=== PATIENT | male | born 1970 | race Hispanic/Latino ===

== ENCOUNTER 2024-01-16 21:06 | Emergency (ER) | payer SELFPAY ==
[2024-01-16 21:07] VITALS: BP 143/60; BP 143/90; PULSE 78; RESP 16; TEMP 36.2; TEMP 36.5; O2SAT 97; BMI 34.1
--- NOTE | 2024-01-16 21:34 | EX.ED.DYSGE1 ---
HPI History of Present Illness Chief Complaint: Cellulitis Informant: patient Limited: language barrier ([employer] service was used.) Onset/Context/Timing Onset: Yesterday Context: Sudden Onset Timing: Continuous Quality: Sharp, aching Location: Left lower leg Worsened by: Walking Relieved by: Tylenol, ibuprofen Narrative Narrative: Patient presents with redness and swelling to his left lower leg that has been getting worse since yesterday. Patient states it began rather suddenly. Patient states it is constant. Patient describes the pain as sharp and aching. Patient states the pain is worse with walking. Patient states it is better with Tylenol and ibuprofen. Patient admits to some fatigue. Patient denies any fevers or chills. Patient denies any trauma or injury. PFSH PFS Medical History no medical history no medical history Home Medications ?Medication ?Instructions ?Recorded ?Last Taken ?Type NK 01/16/24 Unknown History cephalexin 500 mg capsule 500 mg PO Q6 #40 CAPSULES 01/16/24 Unknown Rx Allergy/AdvReac Type Severity Reaction Status Date / Time No Known Allergies Allergy Verified 01/16/24 22:31 Surgical History (Updated 01/16/24 @ 23:[address] Jeff Middleton DO) Hx of foot surgery Social History Smoking Status: Never smoker ROS ROS ED Constitutional Constitutional ED: Denies chills or fever(s) Eyes Eyes: Denies blurry vision or change in vision ENT ENT ED: Denies rhinorrhea or sore throat Cardiovascular Cardiovascular: Denies chest pain or palpitations Respiratory/Chest Respiratory/Chest: Denies cough or dyspnea Gastrointestinal Gastrointestinal: Denies nausea or vomiting Genitourinary Genitourinary ED: Denies dysuria or hematuria Musculoskeletal Musculoskeletal: Denies back pain or neck pain Integumentary Denies abscess or rash Neurologic Neurologic: Denies headache(s) or weakness Allergic/Immunologic Allergic/Immunologic ED: Denies mouth swelling or urticaria EXAM Physical Exam Const Vital Signs: 01/16/24 21:07 01/16/24 21:07 Temperature 97.2 F L 97.7 F L Temperature Source Temporal Temporal Pulse Rate 78 78 Respiratory Rate 16 16 Blood Pressure 143/90 H 143/60 H Blood Pressure Mean 107 87 Pulse Ox 97 97 Oxygen Delivery Method Room Air Room Air Positive well nourished and well developed General Appearance ED: well developed and NAD HEENT Reports moist mucous membranes Neck supple and no JVD Extremity Extremity Narrative: There is erythema, warmth, and tenderness over the anterior aspect of the left lower leg. There is no evidence of any abscess. There is no fluctuance. There is full range of motion of the left knee and left ankle. Pedal pulses are equal bilateral. Sensation was intact to light touch bilaterally in the lower extremities. Strength is 5/5 bilaterally in the lower extremities. There is no calf tenderness noted. Neuro oriented x3, CN's II-XII intact bilaterally and no sensory deficits noted Sensorium / Orientation: alert Motor Exam: strength 5/5 throughout MDM MDM MDM Narrative Medical decision making narrative: Differential diagnosis includes cellulitis, sepsis, and contusion. CBC will be obtained to assess for leukocytosis and anemia. Basic metabolic profile will be obtained to assess for electrolyte abnormality and renal function. Blood cultures will be obtained to assess for sepsis. Lab Data Attestation: I reviewed the patient's lab results. Lab results narrative: CBC was reviewed. There is a slight leukocytosis of 11.1. Basic metabolic profile was reviewed and was within normal limits. Labs: Laboratory Results - last 24 hr 01/16/24 22:00 WBC 11.1 H RBC 4.94 Hgb 14.3 Hct 41.7 MCV 84.4 MCH 28.9 MCHC 34.3 RDW Std Deviation 39.1 RDW Coeff of [place] 12.8 Plt Count 205 MPV 10.4 Immature Gran % (Auto) 0.600 Neut % (Auto) 74.2 H Lymph % (Auto) 15.8 L [place] % (Auto) 8.2 Eos % (Auto) 0.6 Baso % (Auto) 0.6 Absolute Neuts (auto) 8.2 H Absolute Lymphs (auto) 1.75 Nucleated RBC % 0 Sodium 138 Potassium 3.7 Chloride 109 H Carbon Dioxide 23.0 Anion Gap 6 BUN 18 Creatinine 0.86 Estim Creat Clear Calc 106.50 Est GFR (MDRD) Af Amer 120 Est GFR (MDRD) Non-Af 99 BUN/Creatinine Ratio 20.9 H Glucose 94 Calcium 8.6 Treatment and Re-Evaluation :: Patient was given a dose of Ancef here. Patient was instructed to use ice to the area. Patient was given a prescription for Keflex. Patient was instructed to follow-up with his primary care physician in 5 to 7 days. Patient understood and was agreeable with the plan. All questions were answered. Discharge Plan Triage Chief Complaint: Cellulitis ED Provider: Jeff Middleton Dx/Rx/DC Orders Clinical Impression: Cellulitis of left anterior lower leg, Elevated blood pressure reading Instructions: ED Cellulitis Prescriptions: New cephalexin 500 mg capsule 500 mg PO Q6 Qty: 40 0RF No Action NK Primary Care Provider: Care Physician,No Primary Referrals: Radha Gaytan [Non-Staff] - 5-7 Days Care Physician,No Primary [Primary Care Provider] - Activity Restrictions/Additional Instructions: Your blood work was normal. Take the antibiotics as prescribed until gone. Continue Tylenol or ibuprofen as needed for any pain or fevers. Follow-up with a primary care physician in 5 to 7 days for reevaluation. Print Language: [place]ic Disposition Disposition: Home, Self Care
[2024-01-16 22:15] LABS: Absolute Lymphocyte Count 1.75 X10^3/uL (0.83-4.51); Absolute Neutrophil Count 8.2 X10^3/uL (2.0-7.7); Basophil# 0.07 X10^3/uL; Basophil% 0.6 % (0-1); Eosinophil# 0.07 X10^3/uL; Eosinophils% 0.6 % (0-5); Hematocrit 41.7 % (40-54); Hemoglobin 14.3 g/dL (13.0-16.5); Lymphocyte # 1.75 X10^3/ul (0.83-4.51); Lymphocyte % 15.8 % (19-41); Mean Corp Hgb Conc 34.3 g/dL (32-36); Mean Corpuscular Hgb 28.9 pg (27.0-32.0); Mean Corpuscular Volume 84.4 fL (80-94); Mean Platelet Vol. 10.4 fl (6.2-12.0); Monocyte# 0.91 X10^3/uL; Monocyte% 8.2 % (0-10); NRBC Flagged by Analyzer 0 % (0-5); Neutrophil # 8.21 X10^3/uL (2.7-7.7); Neutrophil % 74.2 % (47-70); Platelet Count 205 K/mm3 (150-450); RBC Distribution Width CV 12.8 % (11.6-14.6); RBC Distribution Width SD 39.1 fl (35.1-43.9); Red Blood Count 4.94 M/mm3 (4.6-6.2); White Blood Count 11.1 K/mm3 (4.4-11.0)
[2024-01-16 22:35] LABS: Anion Gap 6 (5-15); BUN 18 mg/dL (7-18); BUN/Creat Ratio 20.9 RATIO (10-20); Calcium,Total 8.6 mg/dL (8.5-10.1); Chloride 109 mmol/L (98-107); Creatinine, Serum 0.86 mg/dL (0.70-1.30); EST Glomerular Filtration Rate 99 mL/min (>60); Est Glom Filt Rate - Afr Amer 120 mL/min (>60); Glucose 94 mg/dL (74-106); Potassium 3.7 mmol/L (3.5-5.1); Sodium Level 138 mmol/L (136-145)
[2024-01-16] MEDS: Cefazolin 1 GM/50 ML BAG IV (22:43)
[2024-01-16 23:34] VITALS: BP 119/79; PULSE 78; RESP 16; TEMP 36.8; O2SAT 97
== END 2024-01-17 00:08 | disposition home or self-care (01) ==
PROVIDERS: Emergency Provider Emergency Medicine; Visit Provider Emergency Medicine
DX: L03.116 Cellulitis of left lower limb (principal); R03.0 Elevated blood-pressure reading, without diagnosis of hypertension
CPT/HCPCS: 80048; 85025; 87040; 96365; 99283; J7050; A4216